=== PATIENT | female | born 1950 | race Caucasian/White ===

== ENCOUNTER → 2022-04-26 | Outpatient (REF) | payer MEDICARE ==
[2022-04-26 18:28] LABS: BASO # 0.1 10^3/uL (0.0-0.2); BASO % 0.9 % (0.0-1.0); EOS # 0.1 10^3/uL (0.0-0.5); EOS % 1.3 % (0.0-3.0); HEMATOCRIT 45.6 % (36.0-47.0); HEMOGLOBIN 14.5 g/dl (12.0-15.5); LYMPH # 2.9 10^3/uL (1.5-5.0); MEAN CORPUSCULAR HEMOGLOBIN 31.5 pg (27.0-33.0); MEAN CORPUSCULAR HGB CONC 31.8 g/dl (32.0-36.5); MEAN CORPUSCULAR VOLUME 99.1 fl (80.0-96.0); MONO # 0.6 10^3/uL (0.0-0.8); MONO % 8.7 % (2.0-8.0); NEUTROPHILS # 3.3 10^3/uL (1.5-8.5); NEUTROPHILS % 47.5 % (36.0-66.0); PLATELET COUNT, AUTOMATED 302 10^3/uL (150-450)
[2022-04-26 21:35] LABS: ALBUMIN 3.9 G/DL (3.2-5.2); ALT/SGPT 22 U/L (7.0-40); BILIRUBIN,TOTAL 0.4 MG/DL (0.3-1.2); BLOOD UREA NITROGEN 24 MG/DL (9-23); CALCIUM LEVEL 9.9 MG/DL (8.3-10.6); CARBON DIOXIDE LEVEL 31 MMOL/L (20-31); CHLORIDE LEVEL 104 MMOL/L (98-107); CHOLESTEROL LEVEL 191 MG/DL (<200); CHOLESTEROL RISK RATIO 3.33 (<5); CREATININE FOR GFR 0.87 MG/DL (0.55-1.30); GLOMERULAR FILTRATION RATE > 60.0 (>39); GLUCOSE, FASTING 84 MG/DL (74-106); HDL CHOLESTEROL 57.3 MG/DL (>40); LDL CHOLESTEROL 121.5 MG/DL (<100); NON-HDL-C 134 MG/DL; POTASSIUM SERUM 4.8 MMOL/L (3.5-5.1); SODIUM LEVEL 141 MMOL/L (136-145); THYROID STIMULATING HORMONE 1.841 uIU/ML (0.55-4.78); TOTAL 25(OH) VITAMIN D 43.1 NG/ML (20.0-100.0); TOTAL PROTEIN 6.2 G/DL (5.7-8.2); TRIGLYCERIDES LEVEL 61 MG/DL (<150)
[2022-04-27 09:17] LABS: HEMOGLOBIN A1c 4.9 % (4.0-6.0)
== END ==
LOC: M LAB REF 16:41
PROVIDERS: ATTEND Nurse Practitioner Family
DX: Z13.228 Encounter for screening for other metabolic disorders (principal)

== ENCOUNTER → 2022-05-10 | Outpatient (REF) | payer MEDICARE, OTHER ==
[2022-05-11 15:27] LABS: APPEARANCE, URINE MANUAL CLOUDY (CLEAR); BILIRUBIN, URINE MANUAL NEGATIVE (NEGATIVE); BLOOD URINE MANUAL POSITIVE (NEGATIVE); COLOR, URINE MANUAL YELLOW (YELLOW); GLUCOSE, URINE (UA) MANUAL NEGATIVE (NEGATIVE); KETONE, URINE MANUAL NEGATIVE (NEGATIVE); LEUKOCYTE ESTERASE, URINE MAN POSITIVE (NEGATIVE); NITRITE, URINE MANUAL NEGATIVE (NEGATIVE); PROTEIN, URINE MANUAL NEGATIVE (NEGATIVE); UROBILINOGEN, URINE MANUAL NORMAL (NORMAL)
[2022-05-11 15:37] LABS: CALCIUM OXALATE CRYSTALS,URINE LARGE AMOUNT /hpf; RBC, URINE 0-1 /hpf (0-3); SQUAMOUS EPITHELIAL CELL URINE SMALL AMOUNT /hpf (SMALL AMT); WBC, URINE 15-20 /hpf (0-3)
[2022-05-11 15:38] LABS: AMORPHOUS SEDIMENT, URINE SMALL AMOUNT (NEGATIVE); BACTERIA, URINE SMALL AMOUNT; HYALINE CAST, URINE NONE SEEN /lpf (0-1)
== END ==
LOC: M LAB REF 14:42
PROVIDERS: ATTEND Nurse Practitioner Family
DX: Z13.228 Encounter for screening for other metabolic disorders (principal)

== ENCOUNTER → 2022-06-26 | Outpatient (CLI) | payer MEDICARE, OTHER | LOC: M WUC 10:04 | PROVIDERS: ATTEND Nurse Practitioner Family | DX: K59.09 Other constipation (principal); M25.552 Pain in left hip; M16.12 Unilateral primary osteoarthritis, left hip ==

== ENCOUNTER → 2023-09-30 | Outpatient (REF) | payer MEDICARE, OTHER ==
[2023-10-01 13:41] LABS: BASO # 0.1 10^3/uL (0.0-0.2); BASO % 0.8 % (0.0-1.0); EOS # 0.1 10^3/uL (0.0-0.5); HEMOGLOBIN 14.6 g/dl (12.0-15.5); LYMPH # 3.3 10^3/uL (1.5-5.0); LYMPH % 30.5 % (24.0-44.0); MEAN CORPUSCULAR HEMOGLOBIN 31.7 pg (27.0-33.0); MEAN CORPUSCULAR HGB CONC 32.4 g/dl (32.0-36.5); MEAN CORPUSCULAR VOLUME 97.6 fl (80.0-96.0); MONO # 0.9 10^3/uL (0.0-0.8); MONO % 7.9 % (2.0-8.0); NEUTROPHILS # 6.5 10^3/uL (1.5-8.5); NEUTROPHILS % 59.2 % (36.0-66.0); PLATELET COUNT, AUTOMATED 309 10^3/uL (150-450); RED BLOOD COUNT 4.61 10^6/uL (4.00-5.40); WHITE BLOOD COUNT 10.9 10^3/uL (4.0-10.0)
== END ==
LOC: M LAB REF 12:57
PROVIDERS: ATTEND Nurse Practitioner Family
DX: I10 Essential (primary) hypertension (principal); F03.90 Unspecified dementia, unspecified severity, without behavioral disturbance, psychotic disturbance, mood disturbance, and anxiety; R63.4 Abnormal weight loss; R30.0 Dysuria

== ENCOUNTER → 2023-10-02 | Outpatient (REF) | payer MEDICARE, OTHER ==
[2023-10-02 19:05] LABS: ALBUMIN 4.3 G/DL (3.2-5.2); ALKALINE PHOSPHATASE 60 U/L (46-116); ALT/SGPT < 9 U/L (7.0-40); AST/SGOT 19 U/L (<34); BILIRUBIN,DIRECT < 0.1 MG/DL (<0.4); BILIRUBIN,TOTAL 0.4 MG/DL (0.3-1.2); BLOOD UREA NITROGEN 25 MG/DL (9-23); CALCIUM LEVEL 9.6 MG/DL (8.3-10.6); CARBON DIOXIDE LEVEL 29 MMOL/L (20-31); CHLORIDE LEVEL 101 MMOL/L (98-107); CHOLESTEROL LEVEL 231 MG/DL (<200); CHOLESTEROL RISK RATIO 3.74 (<5); CREATININE FOR GFR 0.93 MG/DL (0.55-1.30); GLOMERULAR FILTRATION RATE > 60.0 (>39); GLUCOSE, FASTING 88 MG/DL (74-106); HDL CHOLESTEROL 61.7 MG/DL (>40); LDL CHOLESTEROL 138.1 MG/DL (<100); NON-HDL-C 169.3 MG/DL; POTASSIUM SERUM 4.4 MMOL/L (3.5-5.1); SODIUM LEVEL 137 MMOL/L (136-145); THYROID STIMULATING HORMONE 1.514 uIU/ML (0.55-4.78); TOTAL PROTEIN 7.1 G/DL (5.7-8.2); TRIGLYCERIDES LEVEL 156 MG/DL (<150)
== END ==
LOC: M LAB REF 17:50
PROVIDERS: ATTEND Nurse Practitioner Family
DX: I10 Essential (primary) hypertension (principal); R63.4 Abnormal weight loss

== ENCOUNTER 2024-06-30 23:58 | Emergency (ER) | payer MEDICARE, OTHER ==
[2024-07-01 00:18] VITALS: TEMP 98.3
[2024-07-01] MEDS ORDERED: [UNRECOGNIZED DRUG - CODE] PO (00:58)
[2024-07-01] MEDS ORDERED: AMLO25TA PO (00:58)
[2024-07-01] MEDS ORDERED: LORA-1041 PO (00:58)
[2024-07-01] MEDS ORDERED: QUET1TAB17 PO (00:58)
[2024-07-01] MEDS ORDERED: MELO15TA28 PO (00:58)
[2024-07-01] MEDS ORDERED: DONE10TA90 PO (00:58)
[2024-07-01] MEDS ORDERED: ASPI81TA26 PO (00:58)
[2024-07-01] MEDS ORDERED: MEMA1TAB3 PO (00:58)
[2024-07-01] MEDS ORDERED: VENL1TAB35 PO (00:58)
[2024-07-01] MEDS ORDERED: LISI2.5T9 PO (00:58)
[2024-07-01] MEDS ORDERED: PROP60TA14 PO (00:58)
[2024-07-01 01:10] LABS: BASO # 0.1 10^3/uL (0.0-0.2); BASO % 0.9 % (0.0-1.0); EOS # 0.2 10^3/uL (0.0-0.5); EOS % 1.5 % (0.0-3.0); HEMATOCRIT 42.1 % (36.0-47.0); HEMOGLOBIN 13.3 g/dl (12.0-15.5); LYMPH # 3.6 10^3/uL (1.5-5.0); LYMPH % 34.2 % (24.0-44.0); MEAN CORPUSCULAR HEMOGLOBIN 31.2 pg (27.0-33.0); MEAN CORPUSCULAR HGB CONC 31.6 g/dl (32.0-36.5); MEAN CORPUSCULAR VOLUME 98.8 fl (80.0-96.0); MONO % 9.1 % (2.0-8.0); NEUTROPHILS # 5.6 10^3/uL (1.5-8.5); NEUTROPHILS % 52.8 % (36.0-66.0); PLATELET COUNT, AUTOMATED 295 10^3/uL (150-450); RED BLOOD COUNT 4.26 10^6/uL (4.00-5.40); WHITE BLOOD COUNT 10.6 10^3/uL (4.0-10.0)
[2024-07-01] MEDS ORDERED: LISI10TA22 PO (01:29)
[2024-07-01] MEDS ORDERED: AMLO2.5T3 PO (01:29)
[2024-07-01] MEDS ORDERED: MEMA10TA PO (01:29)
[2024-07-01] MEDS ORDERED: VENL150C43 PO (01:29)
[2024-07-01] MEDS ORDERED: LORA-930 PO (01:29)
[2024-07-01] MEDS ORDERED: CARB25TA9 PO (01:29)
[2024-07-01] MEDS ORDERED: PROP10TA56 PO (01:29)
[2024-07-01] MEDS ORDERED: HOME MED LIST COMPLETE! XX SCH (01:30)
[2024-07-01 01:42] LABS: ALBUMIN 3.6 G/DL (3.2-5.2); ALKALINE PHOSPHATASE 63 U/L (35-104); ALT/SGPT < 9 U/L (7.0-40); AST/SGOT 12 U/L (<34); BILIRUBIN,DIRECT < 0.1 MG/DL (<0.4); BILIRUBIN,TOTAL < 0.2 MG/DL (0.3-1.2); BLOOD UREA NITROGEN 40 MG/DL (9-23); CALCIUM LEVEL 9.5 MG/DL (8.3-10.6); CARBON DIOXIDE LEVEL 29 MMOL/L (20-31); CHLORIDE LEVEL 106 MMOL/L (98-107); CREATININE FOR GFR 1.58 MG/DL (0.55-1.30); GLUCOSE, FASTING 87 MG/DL (74-106); POTASSIUM SERUM 4.8 MMOL/L (3.5-5.1); SODIUM LEVEL 142 MMOL/L (136-145); TOTAL PROTEIN 6.5 G/DL (5.7-8.2)
[2024-07-01 01:45] LABS: THYROID STIMULATING HORMONE 2.014 uIU/ML (0.55-4.78)
[2024-07-01 02:00] LABS: KETONE, URINE AUTO RFX TRACE mg/dL (NEGATIVE); MUCUS, URINE RFX SMALL (NEGATIVE); RBC, URINE AUTO RFX 7 /HPF (0-3); SQUAM EPITHELIAL CELL UR AURFX 0 /HPF (0-6)
[2024-07-01 02:01] LABS: LEUKOCYTE ESTERASE UR AUTO RFX 2+ (NEGATIVE); NITRITE, URINE AUTO RFX POSITIVE (NEGATIVE); WBC, URINE AUTO RFX 60 /HPF (0-3)
[2024-07-01] MEDS: NS (Normal Saline) 0.9% 1,000 ML IV ONE (02:32)
[2024-07-01] MEDS: cefTRIAXone SOD 1 GM in DEXTROSE 5% (D5W) ADV/MINI-BAG 50 ML IV ONE (02:50)
[2024-07-01 03:12] LABS: CK-MB VALUE MASS 1.4 NG/ML (<3.6)
[2024-07-01 03:15] LABS: MB/CK RELATIVE INDEX 1.1 (< OR =4)
[2024-07-01 04:09] LABS: MB/CK RELATIVE INDEX 0.92 (< OR =4)
[2024-07-01 04:36] VITALS: BP 144/67; O2SAT 98
[2024-07-01] MEDS ORDERED: CEPH500C PO (04:37)
== END 2024-07-01 04:54 | disposition home or self-care (01) ==
LOC: EDBD 23:58 → M ED 23:58
DX: N39.0 Urinary tract infection, site not specified (principal); E86.0 Dehydration; N17.9 Acute kidney failure, unspecified; R00.1 Bradycardia, unspecified; F03.90 Unspecified dementia, unspecified severity, without behavioral disturbance, psychotic disturbance, mood disturbance, and anxiety; G20.C Parkinsonism, unspecified; Z88.5 Allergy status to narcotic agent; Z79.82 Long term (current) use of aspirin; Z79.811 Long term (current) use of aromatase inhibitors; Z79.899 Other long term (current) drug therapy
CPT/HCPCS: 51701; 70450; 80048; 80076; 81001; 82140; 82550; 82553; 83605; 84443; 84484; 85025; 87088; 87186; 93005; 93041; 94760; 96361; 96365; 99285; J0696

== ENCOUNTER → 2024-07-02 | Outpatient (REF) | payer MEDICARE, OTHER ==
[~2024-07-02] MED LIST: AMLO2.5T3 PO; AMLO25TA PO; ASPI81TA26 PO; CARB25TA9 PO; CEPH500C PO; DONE10TA90 PO; LISI10TA22 PO; LISI2.5T9 PO; LORA-1041 PO; LORA-930 PO; MELO15TA28 PO; MEMA10TA PO; MEMA1TAB3 PO; PROP10TA56 PO; PROP60TA14 PO; QUET1TAB17 PO; VENL150C43 PO; VENL1TAB35 PO; [UNRECOGNIZED DRUG - CODE] PO
[2024-07-02 19:18] LABS: CALCIUM LEVEL 9.3 MG/DL (8.3-10.6); GLOMERULAR FILTRATION RATE 57.7 (>39); POTASSIUM SERUM 6.2 MMOL/L (3.5-5.1)
== END ==
LOC: M LAB REF 16:41
PROVIDERS: ATTEND Nurse Practitioner Family
DX: N17.9 Acute kidney failure, unspecified (principal)

== ENCOUNTER → 2024-07-06 | Outpatient (REF) | payer MEDICARE, OTHER ==
[2024-07-06 17:27] LABS: CALCIUM LEVEL 8.9 MG/DL (8.3-10.6); CREATININE FOR GFR 1.2 MG/DL (0.55-1.30); GLOMERULAR FILTRATION RATE 46.8 (>39); POTASSIUM SERUM 4.9 MMOL/L (3.5-5.1)
== END ==
LOC: M LAB REF 16:27
PROVIDERS: ATTEND Nurse Practitioner Family
DX: N17.9 Acute kidney failure, unspecified (principal)

== ENCOUNTER 2024-09-21 19:41 | Emergency (ER) | payer MEDICARE, OTHER ==
[~2024-09-21] VITALS: Ht 175.3 cm; Wt 79.4 kg
[2024-09-21 23:20] LABS: BASO # 0.1 10^3/uL (0.0-0.2); BASO % 0.7 % (0.0-1.0); EOS # 0.1 10^3/uL (0.0-0.5); HEMATOCRIT 43.1 % (36.0-47.0); HEMOGLOBIN 13.6 g/dl (12.0-15.5); LYMPH # 2.8 10^3/uL (1.5-5.0); MEAN CORPUSCULAR HEMOGLOBIN 30.6 pg (27.0-33.0); MEAN CORPUSCULAR HGB CONC 31.6 g/dl (32.0-36.5); MEAN CORPUSCULAR VOLUME 97.1 fl (80.0-96.0); MONO % 9.4 % (2.0-8.0); NEUTROPHILS # 6.4 10^3/uL (1.5-8.5); PLATELET COUNT, AUTOMATED 276 10^3/uL (150-450); RED BLOOD COUNT 4.44 10^6/uL (4.00-5.40); WHITE BLOOD COUNT 10.5 10^3/uL (4.0-10.0)
[2024-09-21 23:45] LABS: ETHYL ALCOHOL (ETHANOL) < 0.003 % (0.000-0.010)
[2024-09-21 23:46] LABS: ALBUMIN 3.6 G/DL (3.2-5.2); ALKALINE PHOSPHATASE 61 U/L (35-104); ALT/SGPT 9 U/L (7.0-40); AST/SGOT 22 U/L (<34); BILIRUBIN,DIRECT < 0.1 MG/DL (<0.4); BILIRUBIN,TOTAL 0.2 MG/DL (0.3-1.2); BLOOD UREA NITROGEN 24 MG/DL (9-23); CALCIUM LEVEL 8.7 MG/DL (8.3-10.6); CARBON DIOXIDE LEVEL 28 MMOL/L (20-31); CHLORIDE LEVEL 108 MMOL/L (98-107); CK-MB VALUE MASS 1.7 NG/ML (<3.6); CREATININE FOR GFR 1.13 MG/DL (0.55-1.30); GLOMERULAR FILTRATION RATE 51.1 (>39); GLUCOSE, FASTING 97 MG/DL (74-106); SALICYLATE LEVEL < 3.0 MG/DL (<30); SODIUM LEVEL 144 MMOL/L (136-145); TOTAL PROTEIN 6.3 G/DL (5.7-8.2)
[2024-09-21 23:49] LABS: THYROID STIMULATING HORMONE 1.681 uIU/ML (0.55-4.78)
[2024-09-21 23:54] LABS: CPK CREATINE PHOSPHOKINASE 192 U/L (34-145); MB/CK RELATIVE INDEX 0.88 (< OR =4)
[2024-09-22] MEDS: LORazepam 2 MG/ML 1ML VIAL IV STA (01:36)
[2024-09-22 03:24] LABS: KETONE, URINE MANUAL REFLEX NEGATIVE (NEGATIVE); PROTEIN, URINE MANUAL REFLEX TRACE mg/dL (NEGATIVE); SP GRAVITY,URINE MANUAL REFLEX 1.015 (1.002-1.035); UROBILINOGEN, UA MANUAL REFLEX NORMAL (NORMAL)
[2024-09-22 03:25] LABS: NITRITE, URINE MANUAL RFX NEGATIVE (NEGATIVE)
[2024-09-22 03:35] LABS: HYALINE CAST, URINE RFX NONE SEEN /lpf (0-1); RBC, URINE MAN REFLEX 0-1 /hpf (0-3); SQUAMOUS EPITHELIAL URINE RFX SMALL AMOUNT /hpf (SMALL AMT); WBC, URINE MAN RFX 0-1 /hpf (0-3)
[2024-09-22 03:36] LABS: MICROSCOPIC EXAM RFX PERFORMED
[2024-09-22 03:39] LABS: AMPHETAMINES LEVEL URINE NEGATIVE (NEGATIVE); BARBITURATES URINE NEGATIVE (NEGATIVE); BENZODIAZEPINES URINE NEGATIVE (NEGATIVE); CANNABINOIDS URINE NEGATIVE (NEGATIVE); COCAINE METABOLITE URINE NEGATIVE (NEGATIVE); METHADONE URINE NEGATIVE (NEGATIVE); OPIATES URINE NEGATIVE (NEGATIVE); PHENCYCLIDINE URINE NEGATIVE (NEGATIVE)
[2024-09-22] MEDS ORDERED: ACETAMINOPHEN 325 MG TAB PO PRN (04:50)
[2024-09-22 08:38] VITALS: BP 137/68; TEMP 97.3; O2SAT 98
[2024-09-22] MEDS ORDERED: LACTULOSE 20GM/30ML SYRUP UDC PO SCH (09:00)
== END 2024-09-22 08:42 | disposition home or self-care (01) ==
LOC: M ED 19:41 → EDBD 19:41 → M ED 09-22 08:42
DX: S01.01XA Laceration without foreign body of scalp, initial encounter (principal); F03.90 Unspecified dementia, unspecified severity, without behavioral disturbance, psychotic disturbance, mood disturbance, and anxiety; G20.C Parkinsonism, unspecified; I10 Essential (primary) hypertension; M50.30 Other cervical disc degeneration, unspecified cervical region; F10.10 Alcohol abuse, uncomplicated; Z79.82 Long term (current) use of aspirin; Z79.899 Other long term (current) drug therapy; Z88.5 Allergy status to narcotic agent; Z87.891 Personal history of nicotine dependence; Y92.009 Unspecified place in unspecified non-institutional (private) residence as the place of occurrence of the external cause; Y93.89 Activity, other specified; Y99.9 Unspecified external cause status
CPT/HCPCS: 51701; 70450; 71045; 72125; 80048; 80076; 80143; 80307; 81000; 81015; 82077; 82140; 82550; 82553; 83605; 84443; 84484; 85025; 93005; 93041; 94760; 96374; 99285; J2060

== ENCOUNTER → 2024-10-15 | Outpatient (CLI) | payer MEDICARE, OTHER ==
[~2024-10-15] VITALS: Ht 175.3 cm; Wt 75.0 kg
[~2024-10-15] MED LIST changes: +MELA10TA14 PO
[2024-10-15 11:09] VITALS: BP 124/74; O2SAT 97
== END ==
LOC: M PAL 10:52
PROVIDERS: ATTEND Physician Assistant
DX: Z51.5 Encounter for palliative care (principal); Z66 Do not resuscitate; F03.90 Unspecified dementia, unspecified severity, without behavioral disturbance, psychotic disturbance, mood disturbance, and anxiety

== ENCOUNTER 2024-12-20 20:47 | Inpatient (IN) | payer MEDICARE, OTHER ==
[~2024-12-20] VITALS: Ht 170.2 cm; Wt 76.4 kg
[2024-12-20] MEDS: NS (Normal Saline) 0.9% 1,000 ML IV ONE (21:20)
[2024-12-20] MEDS: LIDOCAINE 2% 5 ML JELLY UROJET TOP ONE (21:20)
[2024-12-20 22:42] LABS: VENOUS BASE EXCESS -2.5 (-2.0-2.0); VENOUS HCO3 21.7 MMOL/L (23.0-27.0); VENOUS O2 SATURATION 95.7 % (60.0-80.0); VENOUS PARTIAL PRESSURE CO2 36.0 mmHg (38.0-50.0); VENOUS PARTIAL PRESSURE O2 78.2 mmHg (30.0-50.0); VENOUS PH 7.398 UNITS (7.330-7.430); VENOUS STANDARD HCO3 22.4 MMOL/L; VENOUS TOTAL CO2 22.8 MMOL/L (24.0-28.0)
[2024-12-20 22:46] LABS: BASO # 0.1 10^3/uL (0.0-0.2); BASO % 0.5 % (0.0-1.0); EOS # 0.0 10^3/uL (0.0-0.5); EOS % 0.2 % (0.0-3.0); LYMPH # 2.1 10^3/uL (1.5-5.0); LYMPH % 16.0 % (24.0-44.0); MONO # 1.2 10^3/uL (0.0-0.8); MONO % 9.2 % (2.0-8.0); NEUTROPHILS # 9.8 10^3/uL (1.5-8.5); NEUTROPHILS % 73.7 % (36.0-66.0); PLATELET COUNT, AUTOMATED 320 10^3/uL (150-450)
[2024-12-20 22:56] LABS: KETONE, URINE AUTO RFX 1+ mg/dL (NEGATIVE); LEUKOCYTE ESTERASE UR AUTO RFX 1+ (NEGATIVE); MUCUS, URINE RFX SMALL (NEGATIVE); NITRITE, URINE AUTO RFX POSITIVE (NEGATIVE); RBC, URINE AUTO RFX 4 /HPF (0-3); SQUAM EPITHELIAL CELL UR AURFX 2 /HPF (0-6); WBC, URINE AUTO RFX 15 /HPF (0-3)
[2024-12-20 23:21] LABS: ALT/SGPT 39.0 U/L (7.0-40); AST/SGOT 126.0 U/L (<34); CALCIUM LEVEL 9.2 MG/DL (8.3-10.6); CARBON DIOXIDE LEVEL 23.0 MMOL/L (20-31); CHLORIDE LEVEL 106.0 MMOL/L (98-107); CREATININE FOR GFR 1.21 MG/DL (0.55-1.30); GLOMERULAR FILTRATION RATE 47.0 (>39); POTASSIUM SERUM 4.7 MMOL/L (3.5-5.1); SODIUM LEVEL 143.0 MMOL/L (136-145)
[2024-12-21] MEDS: cefTRIAXone SOD 1 GM in DEXTROSE 5% (D5W) ADV/MINI-BAG 50 ML IV ONE (00:41)
[2024-12-21] MEDS: LR 1,000 ML IV SCH (03:17)
[2024-12-21] MEDS ORDERED: MELA10CA PO (06:54)
[2024-12-21] MEDS ORDERED: HOME MED LIST COMPLETE! XX SCH (06:55)
[2024-12-21 07:09] LABS: PLATELET COUNT, AUTOMATED 307 10^3/uL (150-450)
[2024-12-21 07:39] LABS: CALCIUM LEVEL 9.0 MG/DL (8.3-10.6); CARBON DIOXIDE LEVEL 27.0 MMOL/L (20-31); CHLORIDE LEVEL 106.0 MMOL/L (98-107); CREATININE FOR GFR 1.01 MG/DL (0.55-1.30); GLOMERULAR FILTRATION RATE 58.4 (>39); POTASSIUM SERUM 4.7 MMOL/L (3.5-5.1); SODIUM LEVEL 144.0 MMOL/L (136-145)
[2024-12-21] MEDS ORDERED: PROPRANOLOL 10 MG TAB PO SCH (09:00)
[2024-12-21] MEDS ORDERED: ACETAMINOPHEN 325 MG/10.15 ML UDC PO PRN (10:15)
[2024-12-21] MEDS: ASPIRIN 81 MG CHEWABLE TABLET PO SCH (10:41)
[2024-12-21] MEDS: HEPARIN SOD 5000 UNITS/ML 1 ML VIAL/SYRINGE SC SCH (10:42)
[2024-12-21 12:00] VITALS: BP 134/77; TEMP 98
[2024-12-21 13:55] VITALS: BP 147/88; TEMP 98.6; O2SAT 100
[2024-12-21] MEDS: SINEMET 25-100 MG TAB PO SCH (14:39)
[2024-12-21] MEDS: VENLAFAXINE **XR** 75MG CAPSULE PO SCH (14:40)
[2024-12-21 16:08] VITALS: BP 127/85; TEMP 97.5; O2SAT 99
[2024-12-21] MEDS: DONEPEZIL 5 MG TAB PO SCH (17:08)
[2024-12-21 20:09] VITALS: BP 132/83; TEMP 97.7; O2SAT 94
[2024-12-21 23:36] VITALS: BP 98/53; TEMP 97.7; O2SAT 97
[2024-12-21 23:45] VITALS: BP 96/60
[2024-12-22] MEDS: cefTRIAXone SOD 1 GM in DEXTROSE 5% (D5W) ADV/MINI-BAG 50 ML IV SCH (00:34)
[2024-12-22 04:00] VITALS: BP 121/75; TEMP 97.7; O2SAT 94
[2024-12-22 05:57] LABS: PLATELET COUNT, AUTOMATED 272 10^3/uL (150-450)
[2024-12-22 06:18] LABS: CALCIUM LEVEL 8.8 MG/DL (8.3-10.6); CARBON DIOXIDE LEVEL 25.0 MMOL/L (20-31); CHLORIDE LEVEL 105.0 MMOL/L (98-107); CREATININE FOR GFR 0.9 MG/DL (0.55-1.30); GLOMERULAR FILTRATION RATE 67.1 (>39); POTASSIUM SERUM 4.7 MMOL/L (3.5-5.1); SODIUM LEVEL 143.0 MMOL/L (136-145)
[2024-12-22 07:51] VITALS: BP 124/75; TEMP 98.1; O2SAT 96
[2024-12-22 09:32] VITALS: BP 86/50
[2024-12-22] MEDS: MIDODRINE 5 MG TAB PO SCH (10:27)
[2024-12-22] MEDS: NS (Normal Saline) 0.9% 1,000 ML IV ONE (10:28)
[2024-12-22 10:43] LABS: CORTISOL AM 20.6 UG/DL (4.3-22.4)
[2024-12-22 10:44] LABS: C REACTIVE PROTEIN QUANTITATIV 3.04 MG/DL (<1.0)
[2024-12-22 12:00] VITALS: BP 108/67; TEMP 97.7; O2SAT 96
[2024-12-22 16:00] VITALS: TEMP 97.7; O2SAT 95
[2024-12-22 20:36] VITALS: BP 144/73; TEMP 97.9; O2SAT 96
[2024-12-23 00:06] VITALS: BP 129/66; TEMP 97.3; O2SAT 93
[2024-12-23 03:30] VITALS: BP 141/79; TEMP 97.3; O2SAT 93
[2024-12-23 06:19] LABS: PLATELET COUNT, AUTOMATED 231 10^3/uL (150-450)
[2024-12-23 06:57] LABS: CALCIUM LEVEL 8.5 MG/DL (8.3-10.6); CARBON DIOXIDE LEVEL 25.0 MMOL/L (20-31); CHLORIDE LEVEL 105.0 MMOL/L (98-107); CREATININE FOR GFR 0.87 MG/DL (0.55-1.30); GLOMERULAR FILTRATION RATE 69.9 (>39); POTASSIUM SERUM 4.5 MMOL/L (3.5-5.1); SODIUM LEVEL 143.0 MMOL/L (136-145)
[2024-12-23 08:00] VITALS: BP 145/77; TEMP 98.1; O2SAT 91
[2024-12-23 08:04] LABS: MAGNESIUM LEVEL 1.7 MG/DL (1.8-2.4)
[2024-12-23 17:06] VITALS: BP 141/79
[2024-12-23 21:51] VITALS: BP 143/78; TEMP 97.3; O2SAT 92
[2024-12-24 06:06] LABS: CALCIUM LEVEL 8.7 MG/DL (8.3-10.6); CARBON DIOXIDE LEVEL 26.0 MMOL/L (20-31); CHLORIDE LEVEL 104.0 MMOL/L (98-107); CREATININE FOR GFR 0.89 MG/DL (0.55-1.30); GLOMERULAR FILTRATION RATE 68.0 (>39); MAGNESIUM LEVEL 1.9 MG/DL (1.8-2.4); POTASSIUM SERUM 4.1 MMOL/L (3.5-5.1); SODIUM LEVEL 144.0 MMOL/L (136-145)
[2024-12-24] MEDS: CEFDINIR 300 MG CAP PO SCH (08:21)
[2024-12-24] MEDS ORDERED: HYOSCYAMINE SULFATE 0.125 MG SUBL TABLET PO PRN (09:00)
[2024-12-24] MEDS ORDERED: MORPHINE 10 MG/0.5 ML ORAL CONCENTRATE SOLUTION U/D SL PRN (09:00)
[2024-12-24] MEDS ORDERED: ATROPINE SULFATE 1% OPHTH SOLN 2 ML BTL SL PRN (09:00)
[2024-12-24] MEDS: LORazepam 1 MG TAB PO PRN (20:40)
[2024-12-24] MEDS: SENNA 8.6 MG TAB PO SCH (20:40)
[2024-12-25] MEDS ORDERED: MORPHINE 10 MG/0.5 ML ORAL CONCENTRATE SOLUTION U/D SL PRN (13:25)
[2024-12-25] MEDS: MORPHINE 10 MG/0.5 ML ORAL CONCENTRATE SOLUTION U/D SL SCH (17:22)
[2024-12-28] MEDS ORDERED: MORP1SOL5 PO (11:26)
[2024-12-28] MEDS ORDERED: CEFD300CAP PO (11:26)
[2024-12-28] MEDS ORDERED: ATIV1TAB10 PO (11:26)
[2024-12-28] MEDS ORDERED: HYOS125TA PO (11:26)
== END 2024-12-28 13:08 | disposition hospice, home (50) | DRG 689 ==
LOC: M ED 20:47 → EDBD 20:47 → M ED INP 12-21 02:44 → M MSPAV 12-21 13:48
PROVIDERS: ADMIT Student in an Organized Health Care Education/Training Program; ATTEND Student in an Organized Health Care Education/Training Program
DX: N39.0 Urinary tract infection, site not specified (principal); G93.41 Metabolic encephalopathy; Z66 Do not resuscitate; F03.90 Unspecified dementia, unspecified severity, without behavioral disturbance, psychotic disturbance, mood disturbance, and anxiety; G20.A1 Parkinson's disease without dyskinesia, without mention of fluctuations; I12.9 Hypertensive chronic kidney disease with stage 1 through stage 4 chronic kidney disease, or unspecified chronic kidney disease; N18.30 Chronic kidney disease, stage 3 unspecified; M85.80 Other specified disorders of bone density and structure, unspecified site; R94.5 Abnormal results of liver function studies; I65.29 Occlusion and stenosis of unspecified carotid artery; M50.30 Other cervical disc degeneration, unspecified cervical region; Z79.82 Long term (current) use of aspirin; Z79.899 Other long term (current) drug therapy; Z88.5 Allergy status to narcotic agent